=== PATIENT | male | born 1970 ===

== ENCOUNTER → 2021-08-26 | Day surgery (SDC) | payer OTHER ==
[~2021-08-26] MED LIST: Acetaminophen 325 MG Tab PO SCH; Dexamethasone 4 MG/ML 5 ML MDV ONE; Dexmedetomidine 200 MCG/2 ML SDV ONE; HYDROmorphone 0.5 MG/0.5 ML Syringe IVPUSH PRN; Lactated Ringers 1,000 ML IV SCH; Lactated Ringers 1,000 ML ONE; Lidocaine 1%/Sod Bicarbonate in NS 8.4% 1 ML Syringe IDERM PRN; Midazolam 1 MG/ML 2 ML SDV ONE; Morphine 8 MG, EPINEPHrine 0.3 MG, Cefuroxime 750 MG, Ketorolac 30 MG, Sodium Chloride ... PRN; Ondansetron 4 MG/2 ML SDV IVPUSH PRN; Pregabalin 25 MG Cap PO SCH; Propofol 200 MG/20 ML SDV ONE; Ropivacaine 0.5% 5 MG/ML 30 ML SDV ONE; Sodium Chloride 0.9% 10 ML Syringe FLUSH PRN; Vancomycin 1 GM SDV ONE; ceFAZolin 1 GM Vial ONE; ePHEDrine 50 MG/ML SDV ONE; fentaNYL 100 MCG/2 ML SDV IVPUSH PRN; fentaNYL 100 MCG/2 ML SDV ONE; oxyCODONE 5 MG Tab PO PRN; oxyCODONE ER 10 MG TAB.ER PO SCH
--- NOTE | 2021-08-26 08:46 | PCM.PREANE ---
Preanesthetic Assessment - Procedure Proposed Procedure: Left total Knee arthroplasty - Anesthesia/Transfusion/Family Hx Anesthesia History: Prior Anesthesia Without Reaction Family History of Anesthesia Reaction: Yes (mom coded in PACU after back surgery age 72) Transfusion History: No Prior Transfusion(s) - Review of Systems General: No Symptoms Pulmonary: No Symptoms Cardiovascular: No Symptoms Gastrointestinal: No Symptoms Neurological: No Symptoms Other: Reports: Easy Bruising - Physical Assessment NPO Status Date: 08/25/21 NPO Status Time: 00:00 Vital Signs: Last Vital Signs Temp 36.8 C 08/26/21 08:00 Pulse 70 08/26/21 08:00 Resp 16 08/26/21 08:00 BP 140/84 08/26/21 08:00 Pulse Ox 97 08/26/21 08:00 Height: 1.88 m Weight: 127 kg ASA Class: 3 Mental Status: Alert & Oriented x3 Airway Class: Mallampati = 2 Dentition: Reports: Keeler(s) Thyro-Mental Finger Breadths: 2 Mouth Opening Finger Breadths: 2 ROM/Head Extension: Full Lungs: Clear to Auscultation, Normal Respiratory Effort Cardiovascular: Regular Rate, Regular Rhythm - Imaging/EKG Impressions: EKG SR RBBB Rate 66 - Allergies Allergies/Adverse Reactions: Allergies Allergy/AdvReac Type Severity Reaction Status Date / Time guaifenesin [From Mucinex] Allergy Anaphylactic Verified 08/26/21 08:32 Shock - Anesthesia Plan Pre-Op Medication Ordered: None - Acknowledgements Anesthesia Type Planned: Spinal, Regional Block (adductor canal block for post- op pain control) Pt an Appropriate Candidate for the Planned Anesthesia: Yes Alternatives and Risks of Anesthesia Discussed w Pt/Guardian: Yes Pt/Guardian Understands and Agrees with Anesthesia Plan: Yes PreAnesthesia Questionnaire HEENT History: Reports: Other (See Below) Other HEENT History: conjunctivitis, sore throat, wears glasses Cardiovascular History: Reports: High Cholesterol, Hypertension Respiratory History: Reports: None Gastrointestinal History: Reports: None Genitourinary History: Reports: None PASTRY DECORATOR History: Reports: None Musculoskeletal History: Reports: Gout, Other (See Below) Other Musculoskeletal History: left knee pain, joint pain, polyarthralgia, right shoulder impingement - Infectious Disease History Infectious Disease History: Reports: None - Past Surgical History HEENT Surgical History: Reports: None Cardiovascular Surgical History: Reports: None Respiratory Surgical History: Reports: None GI Surgical History: Reports: Cholecystectomy Male Surgical History: Reports: None - SUBSTANCE USE Tobacco Use Status *Q: Never Tobacco User Tobacco Use Within Last Twelve Months: No Second Hand Smoke Exposure: No Days Per Week of Alcohol Use: 1 Number of Drinks Per Day: 0 Total Drinks Per Week: 0 Recreational Drug Use History: No - HOME MEDS Home Medications: Home Meds Aspirin [Aspirin EC] 325 mg PO BID #60 tab 08/25/21 [Rx] Cholecalciferol (Vitamin D3) [Vitamin D3] 5,000 unit PO DAILY 08/25/21 [History] Cyclobenzaprine [Flexeril] 10 mg PO BID PRN #20 tab 08/25/21 [Rx] Eplerenone [Inspra] 50 mg PO DAILY 08/25/21 [History] Rosuvastatin [Crestor] 10 mg PO DAILY 08/25/21 [History] allopurinoL [Zyloprim] 100 mg PO DAILY 08/25/21 [History] amLODIPine Bes/Olmesartan Med [Amlodipine-Olmesartan 10-40 mg] 1 tab PO DAILY 08/25/21 [History] oxyCODONE 5 - 10 mg PO Q4H PRN #40 tab 08/25/21 [Rx] - CURRENT (IN HOUSE) MEDS Current Meds: Current Medications Acetaminophen (Acetaminophen 325 Mg Tab) 975 mg PO ONETIME CORNELL Stop: 08/26/21 16:00 Last Admin: 08/26/21 08:32 Dose: 975 mg Documented by: Morphine Sulfate 8 mg/Epinephrine HCl 0.3 mg/Cefuroxime Sodium 750 mg/Ketorolac Tromethamine 30 mg/Sodium Chloride 7.9 ml 0 mg .XX ASDIRECTED PRN PRN Reason: PAIN Stop: 08/26/21 23:00 Lactated Ringer's (Ringers, Lactated) 1,000 mls @ 125 mls/hr IV ASDIRECTED CORNELL Stop: 08/26/21 23:00 Last Admin: 08/26/21 08:10 Dose: 125 mls/hr Documented by: Lidocaine/Sodium Bicarbonate (Lidocaine 1%/Sod Bicarbonate In Ns 8.4% 1 Ml Syringe) 0.25 ml IDERM ONETIME PRN PRN Reason: Prior to IV Start Stop: 08/26/21 18:00 Oxycodone HCl (Oxycodone Er 10 Mg Tab.Er) 10 mg PO ONETIME CORNELL Stop: 08/26/21 16:00 Last Admin: 08/26/21 08:32 Dose: 10 mg Documented by: Pregabalin (Pregabalin 25 Mg Cap) 50 mg PO ONETIME CORNELL Stop: 08/26/21 16:00 Last Admin: 08/26/21 08:31 Dose: 50 mg Documented by: Sodium Chloride (Sodium Chloride 0.9% 10 Ml Syringe) 10 ml FLUSH ASDIRECTED PRN PRN Reason: Keep Vein Open Stop: 08/26/21 18:00
--- NOTE | 2021-08-26 12:53 | PCM.PRNOTE ---
- Free Text/Narrative Note: Postoperative regional pain control requested by surgeon. Pre-op Dx: Lt knee osteoarthritis Post-op Rx: Lt total knee arthroplasty. Procedure: Lt Adductor canal block with U/S guidance Requesting physician: Dr. Jono Charles Risks and benefits discussed with the patient preoperatively including infection, bleeding, incomplete or failed block, possible nerve damage, local anesthetic toxicity. Chart reviewed, VS stable. Permit signed. Patient in PACU , stable , alert and awake after SAB. Time out performed at 12:31. Left mid-thigh was prepped with Chloraprep x 1 and allowed to dry. Under aseptic technique, the Left femoral artery and sartorius muscle were identified under ultrasound prior to needle insertion . 4" Stimuplex needle #22 G was inserted under US guidance. Under direct visualization of needle tip the injection of 0.5% Ropivacaine with 1:200k epinephrine,(mixed with 40 mcg Dexmedetomidine and 6 mg of Dexamethasone), total of 30 mls in divided doses, maintaining negative aspiration was completed around the femoral artery under the sartorius muscle without problems. No local anesthetic toxicity was noted. Patient is awake, stable and tolerated the procedure well. Times: 12:31 - 12:40
--- NOTE | 2021-08-26 12:55 | PCM.POSTAN ---
POST ANESTHESIA ASSESSMENT - MENTAL STATUS Mental Status: Alert, Oriented - VITAL SIGNS Vital Signs: Last Vital Signs at 12:08 127/80 90 HR SpO2 93% 17 RR 97.4 F - RESPIRATORY Respiratory Status: Respiratory Rate WNL, Airway Patent, O2 Saturation Stable - CARDIOVASCULAR CV Status: Pulse Rate WNL, Blood Pressure Stable - GASTROINTESTINAL GI Status: No Symptoms - PAIN Pain Score: 0 (post SAB) - POST OP HYDRATION Hydration Status: Adequate & Stable
--- NOTE | 2021-08-26 13:27 | CR ---
Left knee: AP and crosstable lateral views of the left knee were obtained. Comparison: Prior CT left knee study of 08/12/21. Knee prosthesis is noted as well as patellar prosthesis. Components are aligned. Underlying bony structures appear intact. Soft tissue air is noted. Impression: 1. Satisfactory postoperative radiographic appearance of recently placed left knee prostheses. Diagnostic code #2
--- NOTE | 2021-09-14 09:03 | PCM.OPNOTE ---
- General Post-Op/Procedure Note Date of Surgery/Procedure: 08/26/21 Operative Procedure(s): left total knee arthroplasty with [employer] robot[employer] Pre Op Diagnosis: left knee osteartrhosis Post-Op Diagnosis: Same Anesthesia Technique: Local, MAC, Spinal Primary Surgeon: Jono Pelaez Anesthesia Provider: Semaj [employer] Supervisor: Cecilia Penny [employer] Supervisor: Criselda Archer EBL in mLs: 500 Complications: None Condition: Good Free Text/Narrative:: 02/15 10mm 35x10
--- NOTE | 2021-09-14 13:39 | OR ---
DATE OF OPERATION: 08/26/2021 SURGEON: Jono Pelaez MD OPERATION PERFORMED: Left total knee arthroplasty with [employer] robot[employer]. PREOPERATIVE DIAGNOSIS: Left knee osteoarthrosis. POSTOPERATIVE DIAGNOSIS: Left knee osteoarthrosis. ANESTHESIA: Local MAC with spinal. ANESTHESIA PROVIDER: Daina Marcus. GASTROENTEROLOGY NURSE PRACTITIONER: Cecilia Penny PA-C and Criselda Archer LPN. ESTIMATED BLOOD LOSS: 500 mL. COMPLICATIONS: None. CONDITION: Stable. IMPLANT: 1. [place] size 6 press-fit CR femur. 2. Tony size 6 press-fit tibial baseplate. 3. Tony size 6, 10 mm CS polyethylene insert. 4. [place] size 35 x 10 mm press-fit asymmetric patella. DESCRIPTION OF PROCEDURE: The patient was identified in the preop holding area. Proper site was marked and identified by the surgeon. The patient was taken back to the operating theater, where after adequate anesthesia, the patient's left lower extremity had a nonsterile tourniquet applied and then it was sterilely prepped and draped in the usual sterile fashion. OR time-out was performed. The patient received 2 g IV Ancef. Leg sarmiento was then applied to the left lower extremity. At this time, the left lower extremity was exsanguinated. Tourniquet was insufflated to 250 mmHg. Standard anterior incision was made. Medial parapatellar arthrotomy was created. Deep fibers of the MCL were raised and anterior fat pad was resected. Attention was turned to the patella. Patella measured 25, it was resected to a 14 for a 35 x 10 mm patella. Drill holes were then drilled. Attention was then turned to the femur. Two 4.0 Schanz pins were placed intra- incisionally on the femur for the [place] [employer] robotic array and then 2 more were placed on the tibia 3 fingerbreadths below the tibial tubercle. The [place] [employer] robotic arrays were placed on both the femur and the tibia at this time as well as checkpoints on the femur and tibia. Hip center rotation was then obtained. The medial and lateral malleoli were marked as well as the checkpoints were marked for the [place] [employer] robotic plan. The patient's knee was brought to full extension, varus and valgus stresses were applied, and then into 90 degrees of flexion. [place] [employer] robotic plan for this patient was then undertaken to match the flexion and extension gaps. A straight saw blade was then brought in. Tibial cut was completed as well as an anterior femoral cut, anterior chamfer cut, and posterior femoral cut. Saw blade was then switched out and the distal femoral cut as well as the posterior chamfer cut was completed. All bony fragments were removed. At this time, medial and lateral menisci were resected as well as any posterior osteophytes. Attention was turned to the tibia. The size 6 trial baseplate was placed on the tibia and a size 6 trial femur was placed on the femur. A 6, 10 mm trial poly was placed. The patient's knee was brought to full extension and flexion. Varus and valgus stresses were applied, was found to be stable with no instability. No signs of liftoff or loosening on the tibial baseplate. At this time, femoral drill holes were drilled, and the tibia was stamped and drilled in proper rotation. All trial implants were then removed. The size 6 tibial baseplate was impacted into place, size 6 femoral component was impacted into place, and then a 6, 10 CS polyethylene insert was impacted into place. A 35 x 10 mm press-fit patella was then press-fit into place. The tourniquet was deflated. Bleeders were cauterized. 1 L pulse lavage irrigation with Ancef was irrigated through the knee along with 400 mL Irrisept irrigation. Periarticular injection was completed. Topical tranexamic acid and vancomycin powder were applied. All checkpoints and pins were removed. At this point, a #2 barbed suture was used for closure of the medial parapatellar arthrotomy in flexion. 2-0 Vicryl and Stratafix were used for subcutaneous closure. Prineo was used for cutaneous closure. 3-0 nylons were used for closure of the pin holes on the tibia. The patient had a sterile soft dressing applied. The patient had an OCTAVIANO wrap applied and was sent to PACU in stable condition. The patient tolerated the procedure well. MMINDIO /[id number]
== END | disposition home or self-care (01) ==
LOC: JD.SDS 08:11
PROVIDERS: ATTEND Orthopaedic Surgery
DX: I10 Essential (primary) hypertension (principal); M17.12 Unilateral primary osteoarthritis, left knee; E78.00 Pure hypercholesterolemia, unspecified; Z88.8 Allergy status to other drugs, medicaments and biological substances; Z79.899 Other long term (current) drug therapy; Z98.890 Other specified postprocedural states
CPT/HCPCS: 27447; 73560; 97110; 97116; 97161; A9270; C1713; C1776; J0171; J0690; J0697; J1100; J1885; J2250; J2270; J2370; J2405; J2704; J2795; J3010; J3370; J7120; 01402; 64450; 76942